=== PATIENT | female | born 1950 | race Caucasian/White ===

== ENCOUNTER 2018-05-13 07:59 | Outpatient (CLI) | payer MEDICARE | END 2018-05-13 08:00 | disposition home or self-care (01) | LOC: BICMAMMO 07:59 | PROVIDERS: ATTEND Family Medicine | DX: N64.52 Nipple discharge (principal); N63.20 Unspecified lump in the left breast, unspecified quadrant; R92.2 Inconclusive mammogram | CPT/HCPCS: 76642 ×2; 77066; G0279 ==

== ENCOUNTER 2018-05-27 13:00 | Outpatient (CLI) | payer MEDICARE ==
[2018-05-27 14:14] LABS: #Eosinphils 0.3 thou/uL (0.0-0.7); #Lymphocytes 2.8 thou/uL (1.20-3.40); #Monocytes 0.5 thou/uL (0.11-0.59); #Neutrophils 2.9 thou/uL (1.40-6.50); %Basophils 0.4 % (0.0-1.0); %Eosinophils 4.7 % (0.0-10.0); %Lymphocytes 43.1 % (21.0-51.0); %Monocytes 8.3 % (0.0-10.0); %Neutrophils 43.5 % (42.0-75.0); Mean Corpuscular HGB CONC 32.9 g/dL (32.0-36.0); Mean Platelet Volume 6.1 fL (7.4-10.4); Platelet Count 350 thou/uL (130-400); RBC Distribution Width 15.2 % (11.5-14.5); Red Blood Cell (RBC) Count 4.45 mill/uL (4.20-5.40); White Blood Cell (WBC) Count 6.6 thou/uL (4.8-10.8)
[2018-05-27 14:26] LABS: Anion Gap 11 mmol/L (10-20); BUN (Urea Nitrogen) 14 mg/dL (9.8-20.1); Calc. Creatinine Clearance 0 mL/min (70-130); Calcium 9.6 mg/dL (7.8-10.44); Carbon Dioxide 25 mmol/L (23-31); Chloride 106 mmol/L (98-107); Estimated GFR-MDRD 72; Glucose 90 mg/dL (80-115); Potassium 4.4 mmol/L (3.5-5.1); Sodium 138 mmol/L (136-145)
--- NOTE | 2018-05-31 13:41 | EKG ---
Test Reason : Blood Pressure : / mmHG Vent. Rate : 059 BPM Atrial Rate : 059 BPM P-R Int : 150 ms QRS Dur : 090 ms QT Int : 442 ms P-R-T Axes : -01 037 069 degrees QTc Int : 437 ms Sinus bradycardia Otherwise normal ECG Confirmed by ROBSON WILLOUGHBY ([id number]) on 05/31/2018 1:40:59 PM Referred By: ERASMO Confirmed By:ROBSON WILLOUGHBY
== END 2018-05-27 13:01 | disposition home or self-care (01) ==
LOC: LABBT 13:00
PROVIDERS: ATTEND Specialist
DX: Z01.818 Encounter for other preprocedural examination (principal); C50.112 Malignant neoplasm of central portion of left female breast; Z17.0 Estrogen receptor positive status [ER+]
CPT/HCPCS: 80048; 85025; 93005; 93010

== ENCOUNTER 2018-06-09 07:16 | Day surgery (SDC) | payer MEDICARE ==
[2018-05-27 13:11] VITALS: BMI 32.9
--- NOTE | 2018-06-09 10:30 | NM ---
LEFT BREAST LYMPHOSCINTIGRAPHY: Date: 06/09/18 HISTORY: Malignant neoplasm of central portion of left female breast. RADIOPHARMACEUTICAL: 432 microcuries technetium-99m filtered sulfur colloid administered in the left periareolar region. FINDINGS: Planar images of head, neck, and axilla demonstrate a focal area of increased uptake in the left axil la, consistent with sentinel lymph node. No other foci of tracer localization is seen in the region o f the internal mammary or right axillary lymph nodes. IMPRESSION: [place] lymph node in the left axilla. POS: [facility]
[2018-06-09] MEDS ORDERED: Ketorolac Tromethamine 30 MG/ML VIAL ONE (11:02)
[2018-06-09] MEDS ORDERED: CEFAZOLIN/Water 2 GM/20 ML SYRINGE ONE (11:04)
[2018-06-09] MEDS ORDERED: Bupivacaine/Epinephrine 0.25% 30 ML VIAL ONE ×2 (13:20→15:13)
[2018-06-09] MEDS ORDERED: Isosulfan Blue 50 MG/5 ML VIAL ONE (13:21)
[2018-06-09] MEDS ORDERED: Midazolam HCl 2 mg/2 ml Vial ONE (13:22)
[2018-06-09] MEDS ORDERED: Fentanyl 100 MCG/2 ML VIAL ONE ×4 (13:22→16:52)
[2018-06-09] MEDS ORDERED: Phenylephrine HCL 10 MG/ML VIAL ONE (15:19)
--- NOTE | 2018-06-09 16:13 | MMO ---
SPECIMEN MAMMOGRAM: Date: 06/09/18 HISTORY: Needle localization excisional biopsy was performed by Dr. Saini. Specimen mammogram is submitted f or interpretation. COMPARISON: Post biopsy mammogram on 05/16/18. FINDINGS/IMPRESSION: Single specimen mammogram is submitted. The specimen contains a Kopans guidewire with biopsy marker c lip also seen within the central portion of the specimen. POS: [facility]
[2018-06-09] MEDS ORDERED: Ondansetron HCl/PF 4 MG/2 ML Vial ONE (16:47)
[2018-06-09] MEDS ORDERED: Metoprolol Tartrate 5 MG/5 ML VIAL ONE (17:07)
[2018-06-09] MEDS ORDERED: Promethazine HCl 25 MG/ML VIAL ONE ×2 (17:16→17:33)
[2018-06-09] MEDS ORDERED: diphenhydrAMINE 50 MG/ML VIAL ONE (17:22)
[2018-06-09] MEDS ORDERED: Famotidine/PF 20 mg/2ml Vial ONE (17:39)
--- NOTE | 2018-06-10 10:34 | OP ---
DATE OF PROCEDURE: 06/09/2018 PREOPERATIVE DIAGNOSES: Left breast cancer, right nipple discharge. POSTOPERATIVE DIAGNOSES: Left breast cancer, right nipple. OPERATIONS PERFORMED: Right breast ductal excision, left axillary sentinel lymph node biopsy, left u ltrasound guided needle localization of breast cancer, left breast needle localized lumpectomy. SURGEON: Dk Saini M.D. ANESTHESIA: General endotracheal. INDICATIONS: The patient is a 68-year-old white female. She recently had a biopsy of her left breas t lesion that proved to be invasive ductal carcinoma. After discussing options with the patient, she has elected to proceed with breast conservation therapy. I have recommended ultrasound guided needl e localization of the left breast mass along with sentinel lymph node biopsy. She also expresses con cern regarding persistent right nipple discharge. This appears to be emanating from a duct on the in ferior aspect of the nipple. I told her that I could perform a ductal excision simultaneously for elana diagnostic and therapeutic purposes. She underwent lymphoscintigraphy preoperatively which did indicate left axillary sentinel lymph nodes . DESCRIPTION OF PROCEDURE: Informed consent was obtained. The patient was taken to the operating delaney m where general endotracheal anesthesia was obtained with the patient in supine position. Bilateral breasts were prepped with ChloraPrep and draped in sterile fashion. A 3 mL of Lymphazurin was infilt rated into the periareolar subdermal tissue on the left breast and massaged for five minutes. Attent ion was then turned to the left axilla. A transverse inferior axillary incision was created and dissection was carried through skin and subcu taneous tissue. The superficial axillary fascia was incised. The Neoprobe was utilized to identify areas of maximum radio intensity. Blue dye was additionally utilized to identify the sentinel lymph nodes. I was able to identify 3 separate sentinel lymph nodes within the axilla. One of these was t he dominant node that was larger and was darkly blue stained. The other two had significantly lower radioactivity and minimal blue dye. Each node was dissected circumferentially and investing lymphati cs were divided between clamps and 3-0 silk ties. The lymph nodes were then sent to pathology for to uch prep. One of them, the largest lymph node, did prove to be positive on touch prep. The other no nikolay were negative. There was no evidence of other palpable disease within the axilla. I decided not to proceed with completion dissection. Attention was then turned to the right breast. Local anesthetic was infiltrated. The nipple dischar ge was clearly identified through one of the inferior duct. I was able to cannulate this duct within a 20 gauge Angiocath and instilled some methylene blue dye. I then placed a lacrimal duct probe wit hin this duct as well. An inferior circumareolar incision was created and dissection was carried thr ough skin and subcutaneous tissue down to the duct, which was both visible and palpable. It was diss ected circumferentially and transected. I dissected the duct back up towards the nipple and sent thi s as one specimen and then dissected the duct as it extended and branched down within the breast. Th is was resected and submitted as a second specimen with orientation of the ductal system. Meticulous hemostasis was obtained. The wound was closed in layers with 3-0 and 4-0 Monocryl. Addit ional local anesthetic was infiltrated. Dermabond was placed externally. Attention was then turned to the left breast. I was able to identify the malignancy with ultrasound at about the 3 o'clock radian 8 cm from the nipple. I marked the malignancy on the skin in a grid ty pe fashion. Then, using ultrasound guidance, I passed a localizing wire into the malignancy in a med ial to lateral fashion. A transverse incision was created directly over the malignancy incorporating the localizing wire. Dissection was carried through skin and subcutaneous tissue. Flaps were raise d superiorly and inferiorly. I then dissected down around the medial aspect of the localizing wire a s it proceeded towards the cancer. I obtained wide core of tissue around the localizing wire and dis sected this lumpectomy specimen completely. It was removed from within the breast cavity and inspect ed. There did not appear to be any gross evidence of disease at the margin. It was tagged for orien tation and submitted to pathology. Meticulous hemostasis obtained within the wound. It was closed in layers using 3-0 and 4-0 Monocryl. Dermabond was placed externally. Dermabond was also placed around the sentinel lymph node incision and the right breast ductal excision. There were no complications. The patient tolerated the proce dure well and was taken to recovery room in stable condition.
== END 2018-06-09 19:25 | disposition home or self-care (01) ==
LOC: SDC 07:16
PROVIDERS: ATTEND Specialist
PROC: 0HBT0ZZ Excision of Right Breast, Open Approach (ICD-10-PCS; principal; 2018-06-09)
PROC: 07B60ZX Excision of Left Axillary Lymphatic, Open Approach, Diagnostic (ICD-10-PCS; 2018-06-09)
PROC: 0HBT0ZX Excision of Right Breast, Open Approach, Diagnostic (ICD-10-PCS; 2018-06-09)
DX: C50.812 Malignant neoplasm of overlapping sites of left female breast (principal); C77.3 Secondary and unspecified malignant neoplasm of axilla and upper limb lymph nodes; N60.11 Diffuse cystic mastopathy of right breast; N64.52 Nipple discharge; I10 Essential (primary) hypertension; E78.5 Hyperlipidemia, unspecified; E03.9 Hypothyroidism, unspecified; F32.9 Major depressive disorder, single episode, unspecified; F17.210 Nicotine dependence, cigarettes, uncomplicated; Z79.899 Other long term (current) drug therapy; Z88.0 Allergy status to penicillin; Z88.2 Allergy status to sulfonamides; Z17.0 Estrogen receptor positive status [ER+]
CPT/HCPCS: 19125; 19301; 38525; 38900; 76098; 78195; 96374 ×2; A9541; Q9968 ×2; 88305; 88307; 88331; 88334; J0131; J1200; J1885; J2250; J2370; J2405; J2550; J3010; S0028

== ENCOUNTER 2018-07-19 16:28 | Observation (INO) | payer MEDICARE ==
[2018-07-19 17:06] LABS: #Basophils 0.1 thou/uL (0.0-0.2); #Eosinphils 0.3 thou/uL (0.0-0.7); #Lymphocytes 2.3 thou/uL (1.20-3.40); #Monocytes 0.5 thou/uL (0.11-0.59); #Neutrophils 3.4 thou/uL (1.40-6.50); %Basophils 1.2 % (0.0-1.0); %Eosinophils 3.9 % (0.0-10.0); %Lymphocytes 34.9 % (21.0-51.0); %Monocytes 8.1 % (0.0-10.0); %Neutrophils 51.8 % (42.0-75.0); Hemoglobin 12.8 g/dL (12.0-16.0); Mean Corpuscular HGB CONC 32.4 g/dL (32.0-36.0); Mean Corpuscular Hemoglobin 27.2 pg (27.0-31.0); Platelet Count 377 thou/uL (130-400); RBC Distribution Width 13.7 % (11.5-14.5); Red Blood Cell (RBC) Count 4.72 mill/uL (4.20-5.40); White Blood Cell (WBC) Count 6.5 thou/uL (4.8-10.8)
[2018-07-19 17:12] LABS: PTT 30.1 SEC (22.9-36.1); Prothrombin Time 13.1 SEC (12.0-14.7)
[2018-07-19] MEDS ORDERED: Mag-Al 1200 mg/1200 mg/30 ML UDCUP ONE (17:24)
[2018-07-19] MEDS ORDERED: Lidocaine Viscous Sol 2% 15 ml UD Cup ONE (17:24)
[2018-07-19 17:30] LABS: CKMB 0.8 ng/mL (0-6.6); Troponin I Less than 0.010 ng/mL (< 0.028)
[2018-07-19 17:31] LABS: ALT (SGPT) 28 U/L (8-55); AST (SGOT) 20 U/L (5-34); Albumin 4.2 g/dL (3.4-4.8); Alkaline Phosphatase 93 U/L (40-150); Anion Gap 12 mmol/L (10-20); BUN (Urea Nitrogen) 12 mg/dL (9.8-20.1); Bilirubin, Total 0.4 mg/dL (0.2-1.2); Calc. Creatinine Clearance 0 mL/min (70-130); Calcium 9.5 mg/dL (7.8-10.44); Carbon Dioxide 27 mmol/L (23-31); Chloride 102 mmol/L (98-107); Estimated GFR-MDRD 72; Globulin 3.4 g/dL (2.4-3.5); Glucose 97 mg/dL (80-115); Potassium 3.8 mmol/L (3.5-5.1); Protein, Total 7.6 g/dL (6.0-8.3); Sodium 137 mmol/L (136-145)
--- NOTE | 2018-07-19 18:41 | RAD ---
PORTABLE AP CHEST: Date: 07/19/18 HISTORY: Chest pain. COMPARISON: 07/19/18. FINDINGS: Cardiac silhouette is magnified by projection. Pulmonary vasculature is within normal limits. Lungs a re clear. There has been no interval change from prior study. IMPRESSION: No acute cardiopulmonary process. POS: [facility]
[2018-07-19 18:42] LABS: Bilirubin Negative (Negative); Blood, Urine Negative (Negative); Clarity CLEAR (Clear); Glucose, Urine (Dipstick) Negative (Negative); Leukocyte Negative (Negative); Nitrite Negative (Negative); Protein, Urine (Dipstick) Negative (Neg-Trace); Specific Gravity, Urine 1.025 (1.002-1.036); Urobilinogen 0.2 mg/dL (0.2-1.0); pH, Urine 5.5 (5.0-9.0)
[2018-07-19] MEDS ORDERED: Bisacodyl 5 MG TAB PO PRN (21:13)
[2018-07-19] MEDS ORDERED: HYDROcodone/Acetaminophen 5/325 mg Tablet PO PRN (21:13)
[2018-07-19] MEDS ORDERED: Loperamide HCl 2 MG CAP PO PRN (21:13)
[2018-07-19] MEDS ORDERED: Ondansetron ODT 4 MG TAB PO PRN (21:13)
[2018-07-19] MEDS ORDERED: Calcium Carbonate 500 MG ChewTAB PO PRN (21:13)
[2018-07-19] MEDS ORDERED: Zolpidem Tartrate 5 MG TAB PO PRN (21:13)
[2018-07-19] MEDS ORDERED: Ondansetron PF 4 MG/2 ML Vial IVP PRN (21:13)
[2018-07-19] MEDS ORDERED: Acetaminophen 325 MG TAB PO PRN (21:13)
[2018-07-19 21:43] VITALS: BMI 33.0
[2018-07-19] MEDS ORDERED: Ferrous Sulfate 325 MG TAB PO SCH (22:00)
[2018-07-19] MEDS ORDERED: Famotidine 20 MG TAB PO SCH (22:00)
[2018-07-19] MEDS ORDERED: Docusate 100 MG CAP PO SCH (22:00)
[2018-07-19] MEDS ORDERED: DULoxetine 30 MG CAP PO SCH (22:00)
--- NOTE | 2018-07-20 00:43 | HP ---
PRIMARY CARE PHYSICIAN: Dr. Jud Mckeon. REASON FOR ADMISSION: Vague chest discomfort. HISTORY OF PRESENT ILLNESS: A 68-year-old female who has underlying history of hypertension, hypothyroidism and dyslipidemia as well as metastatic breast cancer who presented to emergency room with complaint of chest pain. Patient initially evaluated at [facility] and subsequently she was sent to our emergency room for rule out ACS. The patient reports that today she was feeling bloating sensation from epigastric to neck level with substernal burning discomfort. She did not have any real chest pain, but she was feeling funny. She was feeling mild palpitations. She was not having any shortness of breath. There was no belching. There were no particular things which were of her symptoms worse or better. This was started this morning and it kept getting worse and that is why she decided to come to the emergency room at [facility] and then she was transferred to our hospital for more evaluation. She had negative D-dimer and routine blood tests including EKG were unremarkable. When I saw this patient at that time, the patient was completely asymptomatic. Patient denies any NSAID abuse. The patient denies any constipation, diarrhea, melena, hematochezia. She denies any UTI symptoms. She denies any vomiting. She denies any diaphoresis. She denies any radiation of discomfort in arm or back. REVIEW OF SYSTEMS: The following complete review of systems was negative, unless otherwise mentioned in the HPI or below: Constitutional: Weight loss or gain, ability to conduct usual activities. Skin: Rash, itching. Eyes: Double vision, pain. ENT/Mouth: Nose bleeding, neck stiffness, pain, tenderness. Cardiovascular: Palpitations, dyspnea on exertion, orthopnea. Respiratory: Shortness of breath, wheezing, cough, hemoptysis, fever or night sweats. Gastrointestinal: Poor appetite, abdominal pain, heartburn, nausea, vomiting, constipation, or diarrhea. Genitourinary: Urgency, frequency, dysuria, nocturia. Musculoskeletal: Pain, swelling. Neurologic/Psychiatric: Anxiety, depression. Allergy/Immunologic: Skin rash, bleeding tendency. Please see my HPI for pertinent positive and negative. All other review of systems reviewed and negative except as mentioned in the HPI. ALLERGIES: QUINOLONES and SULFA DRUGS. CURRENT HOME MEDICATIONS: Colace 100 mg p.o. b.i.d., Cymbalta 30 mg p.o. at bedtime, ferrous sulfate 325 mg p.o. at bedtime, Vascepa 1 gram p.o. b.i.d., Synthroid 137 mcg p.o. daily, Toprol-XL 50 mg p.o. b.i.d., Benicar 20 mg p.o. b.i.d., pravastatin 10 mg p.o. daily, Cosentyx 150 mg subcu monthly. PAST MEDICAL HISTORY: The patient has history of hypertension, dyslipidemia, psoriasis, hypothyroidism, metastatic breast cancer diagnosed this year, treated with surgery and scheduled to start radiation on 07/26/2018. PAST SURGICAL HISTORY: Cholecystectomy, hysterectomy, tonsillectomy, breast lumpectomy with lymph node removal from left arm, tumor removed from her right neck. PAST PSYCHIATRIC HISTORY: Anxiety and depression. SOCIAL HISTORY: Patient drinks alcohol socially. She denies any smoking. She denies any other illicit drug abuse. She lives at home by herself. FAMILY HISTORY: The patient does not have any strong family history of premature coronary artery disease, stroke or cancer. EMERGENCY ROOM COURSE: Patient is given GI cocktail in our emergency room and patient was given Lopressor 5 mg IV push x2 at [facility], aspirin 325 mg was given. PHYSICAL EXAMINATION: VITAL SIGNS: Initially at [facility], blood pressure 152/111, pulse 113, respiratory rate 22, temperature 97.8, saturation 95% on room air, weight 83.9 kilograms. GENERAL: Patient is currently alert, awake, no obvious acute distress. HEAD: Normocephalic, atraumatic. EYES: Pupils round, reactive to light. Extraocular muscle intact. ENT: Oropharynx within normal limit. Moist mucous membranes, no oral lesion, no pharyngeal erythema, no exudate. NECK: Supple, no JVD, no thyromegaly, no carotid bruit, no jugular venous distention. LUNGS: Clear to auscultation without any rhonchi or rales. CARDIAC: S1, S2 regular. No murmur, no gallop, no rub. ABDOMEN: Soft, bowel sounds present. No epigastric tenderness, no Silva sign , no guarding, no rigidity, no rebound, no suprapubic tenderness. BACK: Examination unremarkable, no CVA tenderness. EXTREMITIES: Upper extremity passive movements of all joints are normal. Lower extremities: No edema. Good distal pulsation, no calf tenderness. SKIN: No skin rash. HEMATOLOGICAL SYSTEM: No lymphadenopathy. NEUROLOGIC: Nonfocal examination. IMAGING DATA AND SIGNIFICANT LABORATORY DATA: Chest x-ray based on my review, no acute cardiopulmonary process. CBC: WBC 7.4, hemoglobin 12.8, platelets 393. D-dimer 0.28. INR 1.0. BMP: Sodium 138, potassium 4.0, BUN 12, creatinine 0.76, glucose 106, calcium 9.6, lactic acid 2.0. LFT: AST 23, ALT 32, alkaline phosphatase 98, albumin 4.3, lipase 18. BNP 31.8. Cardiac enzymes negative x2. TSH 3.05. Lipase 15. Urinalysis normal. ASSESSMENT AND PLAN/IMPRESSION: 1. Vague chest discomfort. The patient's chest discomfort is from neck to epigastric region. She feels bloating sensation. She feels some vague discomfort in her chest without any real chest pain. Her presentation is somewhat atypical. Her D-dimer is negative. Her EKG is unremarkable. Her cardiac enzymes are negative. At this point, probability of coronary artery disease is very low, most likely related with gastroesophageal reflux disease, but underlying cardiac etiology needs to be excluded. At this point, we will plan for exercise Cardiolite stress test tomorrow morning for diagnostic reason. We will check lipid profile for risk stratification. We will continue with aspirin 325 mg p.o. daily and monitor on telemetry floor. If stress test is negative, then we will consider discharging her home tomorrow. 2. History of metastatic breast cancer. The patient had lymph node positive breast cancer. She had lumpectomy and lymph node dissection. She is planned for radiation next week. She will follow up with Oncology as an outpatient basis. 3. Psoriasis. Patient is getting monthly Cosentyx therapy and it is well controlled with this medication. 4. Anxiety and depression. We will continue Cymbalta 30 mg p.o. at bedtime. 5. Hypothyroidism. We will continue Synthroid 137 mcg p.o. daily. 6. Hypertension. We will continue Benicar 20 mg p.o. at bedtime. We are holding Toprol-XL because we are planning to do stress test tomorrow morning. 7. Dyslipidemia. Check lipid profile tomorrow and continue pravastatin 10 mg p.o. daily. 8. Chronic constipation. Continue Colace 100 mg twice daily. 9. Obesity with body mass index 33. Dietary education given, weight loss education given. Healthy lifestyle measures discussed with the patient. 10. Deep venous thrombosis prophylaxis not needed because we are expecting discharge in 24 hours. 11. Gastrointestinal prophylaxis, Pepcid 20 mg p.o. b.i.d. CODE STATUS: Patient is FULL CODE. The patient is making her own decisions. Disposition plan based on stress test result, likely within 24 hours. Plan of care discussed with the patient in detail. NAKITAD
[2018-07-20 01:22] LABS: CKMB 1.1 ng/mL (0-6.6); Troponin I Less than 0.010 ng/mL (< 0.028)
[2018-07-20 04:55] VITALS: TEMP 98
[2018-07-20 05:07] LABS: Cardiac Risk 5.8 (Less than 4.5)
[2018-07-20 05:10] LABS: CKMB 1.1 ng/mL (0-6.6); Troponin I Less than 0.010 ng/mL (< 0.028)
[2018-07-20] MEDS ORDERED: Levothyroxine Sodium 25 MCG TAB PO SCH (06:00)
[2018-07-20] MEDS ORDERED: Levothyroxine Sodium 112 MCG TAB PO SCH (06:00)
[2018-07-20] MEDS ORDERED: Pravastatin Sodium 20 MG TAB PO SCH (09:00)
[2018-07-20] MEDS ORDERED: Famotidine 20 MG TAB PO SCH (09:00)
[2018-07-20] MEDS ORDERED: Docusate 100 MG CAP PO SCH (09:00)
[2018-07-20] MEDS ORDERED: Icosapent Ethyl [Vascepa] 1 GM PO SCH (09:00)
[2018-07-20] MEDS ORDERED: Aspirin 325 MG TAB PO SCH (09:00)
[2018-07-20] MEDS ORDERED: Non-Formulary Item 1 EACH (Levothyroxine Sodium [Levothyroxine Sodium] 137 MCG) PO SCH (09:00)
--- NOTE | 2018-07-20 12:13 | NM ---
MYOCARDIAL PERFUSION EVALUATION: History: Chest pain. Comparison: 11-08-11 Radiopharmaceutical: 33 mCi Technetium 99M Sestamibi IV with stress and 11 mCi Technetium 99M Sestami bi with rest. FINDINGS: When comparing the rest and stress images no reversible myocardial perfusion defect is evident. There is normal wall motion and thickening. The estimated LVEF is 78%. IMPRESSION: 1. No scintigraphic evidence of reversible myocardial ischemia. 2. Estimated LVEF is 78%. POS: [facility]
[2018-07-20 12:32] VITALS: BP 131/79
[2018-07-20] MEDS ORDERED: Ferrous Sulfate 325 MG TAB PO SCH (21:00)
[2018-07-20] MEDS ORDERED: DULoxetine 30 MG CAP PO SCH (21:00)
--- NOTE | 2018-07-20 22:31 | DIS ---
DATE OF ADMISSION: 07/19/2018 DATE OF DISCHARGE: 07/20/2018 Patient is a FULL CODE. PRIMARY CARE PHYSICIAN: Jud Mckeon D.O. [employer]: Blake Joel M.D. DISCHARGE DIAGNOSES: 1. Atypical chest pain. 2. Recent diagnosis of breast cancer. 3. Hypertension. 4. Hypothyroidism. 5. Anxiety. 6. Hyperlipidemia. 7. Psoriasis. PROCEDURES: 1. Chest x-ray done in the ER which showed no acute process. 2. Cardiac stress test which was negative with an LVEF of 78%. REVIEW OF SYSTEMS: CONSTITUTIONAL: Patient is alert. Denies any fever, chills, change in mental st atus. SKIN: Denies rash or itching. EYES: Denies double vision or pain. ENT: Mucous membranes a re moist. Eyes are round and reactive to light. RESPIRATORY: Denies any shortness of breath, wheez ing, cough. GASTROINTESTINAL: Denies any nausea, vomiting, diarrhea. Does report some bloating sen sation. MUSCULOSKELETAL: Denies any pain or swelling. NEUROLOGIC: Denies any anxiety or depressio n. PHYSICAL EXAMINATION: VITAL SIGNS: Pulse is 98, temperature 98.1, respiratory rate 16, blood pressure is 130/79. GENERAL: Patient is alert, awake, in no obvious distress. HEAD: Normocephalic and atraumatic. EYES: Pupils are round and reactive to light. Extraocular muscles are intact. ENT: Moist mucous membranes. No oral lesions. NECK: Supple, no JVD. LUNGS: Clear to auscultation. No rhonchi, no rales. CARDIAC: S1 and S2. No murmurs, gallops or rubs. ABDOMEN: Soft. Bowel sounds are present. No distention noted. No tenderness. BACK: Full range of motion. No CVA tenderness. EXTREMITIES: Able to move all extremities and has good pulses and sensation. SKIN: Warm, dry, and intact. No rashes are noted. NEUROLOGICAL: There are no focal findings. HISTORY OF PRESENT ILLNESS AND HOSPITAL COURSE: This is a pleasant 68-year-old female who presented to the ER on 07/19/2018 with chest pain. She was initially seen in the ED at [facility] and was sent t o [facility] for admission and a cardiac workup. Patient reported yesterday t hat she felt funny and felt bloated from her neck down to her lower abdomen. She denies true chest p ain. PAST MEDICAL HISTORY: Pertinent for a recent diagnosis in April of breast cancer and has undergone a lumpectomy and is scheduled to start radiation therapy next week. Patient has denied shortness of breath and denies anything that makes symptoms better or worse. In the ER, EKG was unremarkable. La bs are unremarkable. Troponins remained negative. Her triglycerides were 256, which is increased ev en though she is on a low dose statin and omega 6 oil. The patient reports this morning that she is pain free. Reports bloating have improved. Her vital signs remained stable. Her stress test remain s negative and she will be discharged home. Dr. Gardiner and the patient agreed to plan. ALLERGIES: QUINOLONES and SULFA. DISCHARGE MEDICATIONS: Patient will be continued on her home medications; Colace 100 mg p.o. b.i.d., Cymbalta 30 mg p.o. at bedtime, ferrous sulfate 325 mg p.o. at bedtime, Vascepa 1 gram p.o. b.i.d., Synthroid 137 mcg p.o. daily, Toprol-XL 50 mg p.o. b.i.d., Benicar 20 mg p.o. b.i.d., Cosentyx 150 mg subcu monthly, pravastatin will be changed from 10 mg p.o. daily to 20 mg p.o. daily. DISCHARGE CONDITION: Stable. DISCHARGE INSTRUCTIONS: The patient will be discharged to home. She will need to follow up with Dr. Mckeon within 1 week. She can follow up with Dr. Joel in the next 2-3 weeks and follow up with h er oncologist as scheduled.
--- NOTE | 2018-07-23 13:27 | EKG ---
Test Reason : Blood Pressure : / mmHG Vent. Rate : 064 BPM Atrial Rate : 064 BPM P-R Int : 150 ms QRS Dur : 094 ms QT Int : 430 ms P-R-T Axes : -20 014 052 degrees QTc Int : 443 ms Normal sinus rhythm Normal ECG Confirmed by SHIRLEY ALVARADO ([id number]), news videotape editor MYRA SUNSHINE ([id number]) on 07/23/2018 1:27:26 PM Referred By: Confirmed By:SHIRLEY ALVARADO
== END 2018-07-20 14:54 | disposition home or self-care (01) ==
LOC: ERS 16:28 → 2SW 20:32
PROVIDERS: ADMIT Internal Medicine; ATTEND Internal Medicine
DX: R07.89 Other chest pain (principal); I10 Essential (primary) hypertension; E03.9 Hypothyroidism, unspecified; E78.5 Hyperlipidemia, unspecified; F41.9 Anxiety disorder, unspecified; L40.9 Psoriasis, unspecified; Z85.3 Personal history of malignant neoplasm of breast; Z88.2 Allergy status to sulfonamides; Z79.899 Other long term (current) drug therapy
CPT/HCPCS: 71045; 78452; 80053; 80061; 81003; 82553 ×3; 83690; 84484 ×3; 85025; 85610; 85730; 93005; 93017; 99285; A9500; G0378 ×2; 36415

== ENCOUNTER 2018-10-12 14:38 | Outpatient (CLI) | payer MEDICARE ==
--- NOTE | 2018-10-12 16:33 | BD ---
Exam: DEXA Bone Density 10/12/18 HISTORY: 68-year-old female who is menopausal. History of breast cancer. Lumbar Spine: BMD (g/cm2) L1 0.751 T-Score: -2.2 L2 0.741 T-Score: -2.6 L3 0.719 T-Score: -3.3 L4 0.734 T-Score: -3.0 L1-L4 0.736 T-Score: -2.8 Evidence for osteoporosis with high risk for fracture. Left Femur: Femoral neck 0.643 T-Score: -1.9 Total Femur: 0.814 T-Score: -1.0 Evidence for osteopenia with increased risk for fracture. FRAX score not reported because some T-Sco res at or below -2.5. POS: [facility]
== END 2018-10-12 14:39 | disposition home or self-care (01) ==
LOC: BICMAMMO 14:38
PROVIDERS: ATTEND Internal Medicine Hematology & Oncology
DX: Z13.820 Encounter for screening for osteoporosis (principal); C50.919 Malignant neoplasm of unspecified site of unspecified female breast; N95.9 Unspecified menopausal and perimenopausal disorder; M85.88 Other specified disorders of bone density and structure, other site
CPT/HCPCS: 77080

== ENCOUNTER 2019-06-26 10:36 | Outpatient (CLI) | payer MEDICARE ==
--- NOTE | 2019-06-26 11:25 | MMO ---
Bilateral MAMMO Bilat Diag DDI+JOSIE. CLINICAL HISTORY: Patient is 69 years old and is seen for diagnostic exam. The patient has the following family history of breast cancer: paternal aunt and maternal aunt. The patient has a history of malignant (generic) in the left breast in 2018. The patient has a history of left Lumpectomy in 2018 - malignant - AND NODE DISSECTION. VIEWS: The views performed were: bilateral craniocaudal with tomosynthesis; bilateral mediolateral oblique with tomosynthesis; bilateral mediolateral with tomosynthesis; and left exaggerated craniocaudal. FILMS COMPARED: The present examination has been compared to prior imaging studies performed at [facility] on 08/10/2003, 09/25/2004, 08/04/2016 and 05/13/2018. This study has been interpreted with the assistance of computer-aided detection. MAMMOGRAM FINDINGS: The breasts are heterogeneously dense, which could obscure a lesion on mammography. Finding 1: There is an area of skin thickening, an area of architectural distortion and a post-surgical scar seen in the left breast. Finding 2: There are benign appearing calcifications seen in both breasts. There are no suspicious masses, suspicious calcifications, or new areas of architectural distortion. IMPRESSION: THERE IS NO MAMMOGRAPHIC EVIDENCE OF MALIGNANCY. A ROUTINE FOLLOW-UP MAMMOGRAM IN 1 YEAR IS RECOMMENDED. THE RESULTS OF THIS EXAM WERE SENT TO THE PATIENT. ACR BI-RADS Category 2 - Benign finding MAMMOGRAPHY NOTE: 1. A negative mammogram report should not delay a biopsy if a dominant of clinically suspicious mass is present. 2. Approximately 10% to 15% of breast cancers are not detected by mammography. 3. Adenosis and dense breasts may obscure an underlying neoplasm. Reported by: MARYCARMEN PHAM MD Electonically Signed: [id number]
== END 2019-06-26 10:37 | disposition home or self-care (01) ==
LOC: BICMAMMO 10:36
PROVIDERS: ATTEND Specialist
DX: N60.11 Diffuse cystic mastopathy of right breast (principal); Z80.3 Family history of malignant neoplasm of breast
CPT/HCPCS: 77066; G0279

== ENCOUNTER 2019-10-30 07:49 | Outpatient (CLI) | payer MEDICARE, OTHER ==
--- NOTE | 2019-10-30 08:54 | BD ---
BONE DENSITOMETRY USING DEXA: HISTORY: Postmenopausal screening for osteoporosis, menopausal empyema, menopausal disorders. FINDINGS: Lumbar Spine: BMD (g/cm2) L1 0.747 T-Score: -2.3 Z-Score: 0.5 L2 0.677 T-Score: -0.2 Z-Score: -1.3 L3 0.729 T-Score: -0.2 Z-Score: -1.2 L4 0.771 T-Score: -2.6 Z-Score: -0.6 L1-L4 0.733 T-Score: -2.9 Z-Score: -0.9 Femoral Neck: 0.668 T-Score: -1.6 Z-Score: 0.0 Total Femur: 0.828 T-Score: -0.9 Z-Score: 0.4 There has been interval reduction of 0.5% in BMD of the lumbar spine and am improvement of 1.7% in th e BMD of the proximal femur since 10/12/2018. Impression: Osteopenia. POS: [facility]
== END 2019-10-30 07:50 | disposition home or self-care (01) ==
LOC: BICMAMMO 07:49
PROVIDERS: ATTEND Internal Medicine Hematology & Oncology
DX: M81.0 Age-related osteoporosis without current pathological fracture (principal); C50.919 Malignant neoplasm of unspecified site of unspecified female breast; N95.8 Other specified menopausal and perimenopausal disorders; M85.859 Other specified disorders of bone density and structure, unspecified thigh
CPT/HCPCS: 77080

== ENCOUNTER 2020-07-26 14:41 | Outpatient (CLI) | payer MEDICARE ==
--- NOTE | 2020-07-26 15:08 | MMO ---
Bilateral MAMMO Bilat Diag DDI+JOSIE. CLINICAL HISTORY: Patient is 70 years old and is seen for diagnostic exam. The patient has the following family history of breast cancer: paternal aunt and maternal aunt. The patient has a history of malignant (generic) in the left breast in 2018. The patient has a history of left Lumpectomy in 2018 - malignant - AND NODE DISSECTION. VIEWS: The views performed were: bilateral craniocaudal with tomosynthesis; bilateral mediolateral oblique with tomosynthesis; and bilateral mediolateral with tomosynthesis. FILMS COMPARED: The present examination has been compared to prior imaging studies performed at [facility] on 09/25/2004, 08/04/2016, 05/13/2018 and 06/26/2019. This study has been interpreted with the assistance of computer-aided detection. MAMMOGRAM FINDINGS: The breasts are heterogeneously dense, which could obscure a lesion on mammography. Finding 1: There are stable benign appearing calcifications seen in both breasts. Finding 2: There are stable post operative changes seen in the left breast. There are no suspicious masses, suspicious calcifications, or new areas of architectural distortion. IMPRESSION: THERE IS NO MAMMOGRAPHIC EVIDENCE OF MALIGNANCY. A ROUTINE FOLLOW-UP MAMMOGRAM IN 1 YEAR IS RECOMMENDED. THE RESULTS OF THIS EXAM WERE SENT TO THE PATIENT. ACR BI-RADS Category 2 - Benign finding MAMMOGRAPHY NOTE: 1. A negative mammogram report should not delay a biopsy if a dominant of clinically suspicious mass is present. 2. Approximately 10% to 15% of breast cancers are not detected by mammography. 3. Adenosis and dense breasts may obscure an underlying neoplasm. Reported by: RAINE RIOS MD Electonically Signed: [id number]
== END 2020-07-26 14:42 | disposition home or self-care (01) ==
LOC: BICMAMMO 14:41
PROVIDERS: ATTEND Internal Medicine Hematology & Oncology
DX: Z08 Encounter for follow-up examination after completed treatment for malignant neoplasm (principal); Z85.3 Personal history of malignant neoplasm of breast
CPT/HCPCS: 77066; G0279

== ENCOUNTER 2021-02-03 08:31 | Outpatient (CLI) | payer MEDICARE | END 2021-02-03 08:32 | disposition home or self-care (01) | LOC: BICMAMMO 08:31 | PROVIDERS: ATTEND Internal Medicine Hematology & Oncology | DX: M85.80 Other specified disorders of bone density and structure, unspecified site (principal); M81.0 Age-related osteoporosis without current pathological fracture; T38.6X5A Adverse effect of antigonadotrophins, antiestrogens, antiandrogens, not elsewhere classified, initial encounter | CPT/HCPCS: 77080 ==

== ENCOUNTER 2021-07-28 09:19 | Outpatient (CLI) | payer MEDICARE | END 2021-07-28 09:20 | disposition home or self-care (01) | LOC: BICMAMMO 09:19 | PROVIDERS: ATTEND Internal Medicine Hematology & Oncology | DX: Z13.820 Encounter for screening for osteoporosis (principal); M81.0 Age-related osteoporosis without current pathological fracture; Z08 Encounter for follow-up examination after completed treatment for malignant neoplasm; Z85.3 Personal history of malignant neoplasm of breast | CPT/HCPCS: 77066; 77080; G0279 ==

== ENCOUNTER 2022-08-26 10:08 | Outpatient (CLI) | payer MEDICARE | END 2022-08-26 10:09 | disposition home or self-care (01) | LOC: BICMAMMO 10:08 | PROVIDERS: ATTEND Specialist | DX: Z08 Encounter for follow-up examination after completed treatment for malignant neoplasm (principal); Z85.3 Personal history of malignant neoplasm of breast | CPT/HCPCS: 77066; G0279 ==

== ENCOUNTER 2023-09-30 10:27 | Outpatient (CLI) | payer MEDICARE | END 2023-09-30 10:28 | disposition home or self-care (01) | LOC: BICMAMMO 10:27 | PROVIDERS: ATTEND Specialist | DX: Z12.31 Encounter for screening mammogram for malignant neoplasm of breast (principal); Z80.3 Family history of malignant neoplasm of breast; Z85.3 Personal history of malignant neoplasm of breast; Z98.890 Other specified postprocedural states | CPT/HCPCS: 77063; 77067 ==